=== PATIENT | female | born 1965 | race African-American/Black ===

== ENCOUNTER 2020-08-12 21:45 | Inpatient (IN) | payer MEDICARE ==
[~2020-08-12] VITALS: Ht 177.8 cm; Wt 79.4 kg
[2020-08-12 22:15] VITALS: BP 129/70
[2020-08-12] MEDS ORDERED: TEMAZEPAM 7.5 MG CAPSULE PO PRN (22:30)
[2020-08-12] MEDS ORDERED: MAGNESIUM HYDROXIDE 30 ML UDC PO PRN (22:30)
[2020-08-12] MEDS ORDERED: BLOOD SUGAR DIAGNOSTIC 1 EACH STRIP IN ONE (22:30)
[2020-08-12] MEDS ORDERED: MAG HYDROX/AL HYDROX/SIMETH 30 ML UDC PO PRN (22:30)
[2020-08-12] MEDS: LORAZEPAM 0.5 MG TABLET PO PRN (23:04)
--- NOTE | 2020-08-12 23:05 | NUR ---
RN NOTES : ANXIETY PT. C/O FEELING ANXIOUS PARANOID, HYPERVERVAL, PACING IN HALLWAY ATIVAN 0.5 MG PO PRN GIVEN PER PT. REQUEST , WILL CONTINUE TO MONITOR.
--- NOTE | 2020-08-12 23:15 | NUR ---
ADMISSION NOTES: ADMITTED THIS 55Y/O FEMALE PATIENT DIRECT ADMIT FROM [facility], ADMITTED TO GPS CONSERVED PATIENT ,UPON FACE TO FACE ASSESSMENT PATIENT IS A&O X 2,3 DELUSIONAL, ANXIOUS ,PARANOID , HYPERVERBAL TALKING TO SELF DISORGNIZED ,DISHELVED ,EASILY GETS AGITATED, PACING IN HALLWAY ,DENIES SI /HI AT THIS TIME, PT. IS POOR HISTORIAN, POOR INSIGHT ,POOR JUDGEMENT , PT. REFUSED TO SIGNS ADMISSION CONSENT PAPERS , DUE TO MENTAL STATUS / DELUSIONAL, PT. REFUSED INTIALLY BLOOD SUGAR CHECK ,PER PT. I AM NOT DIABETIC,BOTH MD AWARE AND NOTIFIED OF THE ADMISSION, BELONGINGS CONTRABAND WERE DONE ,PT. RIGHTS DISCUSS BY ANIMAL NURSE , PROVIDE THE PT. WITH HANDBOOK, AND MEDICATIONS GUIDE, ENVIRONMENTAL SAFETY CHECK DONE, ENCOURAGED PT. VERBALIZED ANY FEELING CONCERN TO STAFF, ORIENT TO UNIT POLICY, NO ACUTE DISTRESS NOTED,VITAL SIGNS WNL ,DENIES ANY PAIN AT THIS TIME,WILL CONTINUE TO MONITOR FOR Q15 SAFETY AND BEHAVIOR.
[2020-08-13] MEDS ORDERED: OLAN15TA3 PO (01:24)
[2020-08-13] MEDS ORDERED: BENZ2TAB7 PO (01:24)
[2020-08-13] MEDS ORDERED: DIVA500T2 PO ×2 (01:24)
--- NOTE | 2020-08-13 06:16 | NUR ---
RN NOTES: PT. REFUSED SKIN ASSESSMENT AND PHOTS TAKEN , ENCOURAGE X 3 STILL STRONGLY REFUSED , PER PT. MY SKIN IS FINE ONLY DRYNESS SKIN,WILL CONTINUITY WITH CARE.
--- NOTE | 2020-08-13 06:19 | NUR ---
RN NOTES: PLACED CALLED AND LEFT MESSAGE TO RAFAT RASCON REGARDING AUTHORIZATION TO DETAIN AND TREAT CONSERVATEE , PHONE [phone].
--- NOTE | 2020-08-13 06:40 | NUR ---
RN NOTES: PATIENT RESTING IN ROOM. NO S/S OF DISTRESS. NO BEHAVIOR PROBLEMS NOTED AND NO CHANGE OF CONDITION NOTED, SAFETY PRECAUTION MAINTAINED, ALL PATIENT CARE NEEDS MET AT THIS TIME. WILL CONTINUE TO MONITOR PATIENT FOR MOOD, BEHAVIOR AND SAFETY AND ENDORSE TO AM SHIFT FOR CONTINUITY CARE.
[2020-08-13 08:00] VITALS: BP 127/72
--- NOTE | 2020-08-13 08:30 | NUR ---
RN NOTE- PHONED [facility] CONSERVATOR REGARDING FAX NUMBER AND LEFT MESSAGE ABOUT CURRENT DETAIN & TREAT FORM.
--- NOTE | 2020-08-13 09:00 | NUR ---
RN NOTE- PT DELUSIONAL THINKS EATING WILL CAUSE OTHERS TO SO SHES BARELY EATING FOOD. DRINKING FLUIDS HOWEVER. VISIBLE ON UNIT SELECTIVELY INTERACTIVE NO BEHAVIORAL ISSUES
--- NOTE | 2020-08-13 11:30 | NUR ---
RN NOTE- CALLED [facility] CONSERVATOR AGAIN. LEFT MESSAGE ABOUT DETAIN & TREAT FORM. NO REPLY SPOKE W DR TAMEZ TODAY AND SHOWED HER. WILL CONTINUE TO TREAT HER W EXISTING DOCUMENTATION FOR NOW.
[2020-08-13] MEDS: LITHIUM CARBONATE 150 MG CAPSULE PO SCH ×2 (11:50→21:29)
[2020-08-13] MEDS: risperiDONE 1 MG TABLET PO SCH ×2 (12:52→16:38)
[2020-08-13 16:00] VITALS: BP 114/68
[2020-08-13 16:42] LABS: BASOPHILS % (AUTO) 0.6 % (0.0-2.0); EOSINOPHILS % (AUTO) 2.7 % (0.0-6.0); HEMATOCRIT 40 % (33-45); HEMOGLOBIN 12.7 g/dL (11.5-14.8); LYMPHOCYTES # (AUTO) 1.2 /CMM (0.8-4.8); LYMPHOCYTES % (AUTO) 18.7 % (20.0-44.0); MEAN CORPUSCULAR HGB CONC 32 g/dl (31.0-36.0); MEAN CORPUSCULAR VOLUME 98 fL (82-100); MONOCYTES # (AUTO) 0.8 /CMM (0.1-1.30); NEUTROPHILS # (AUTO) 4.1 /CMM (1.8-8.9); PLATELET COUNT (AUTO) 239 /CMM (150-450); RED BLOOD CELL COUNT(AUTO) 4.03 MIL/uL (4.0-5.2); WHITE BLOOD COUNT (AUTO) 6.3 K/uL (4.3-11.0)
[2020-08-13 17:15] LABS: CREATININE 0.8 mg/dL (0.6-1.3); POTASSIUM 3.6 mmol/L (3.5-5.1)
--- NOTE | 2020-08-13 19:30 | NUR ---
GPS RN NOTE, RECEIVED PATIENT AWAKE AND IN ROOM, NO S/S OR COMPLAINTS OF PAIN AT THIS TIME. PATIENT IS DISPLAYING NO S/S OF APPARENT DISTRESS AT THIS TIME. PATIENT BREATHING IS UNLABORED WITH EQUAL RISE AND FALL OF THE CHEST. PATIENT IS ALERT AND ORIENTED X 3 ON ROOM AIR WITH A SPO2 99%. PATIENT IS COMPLIANT WITH MEDICATIONS, HYPERVERBAL AT TIMES, ANXIOUS, DEMANDING, PARANOID, FOCUSED ON DISCHARGE, NEEDS LOTS OF REDIRECTION, AND COOPERATIVE. PATIENT DENIES SUICIDAL AND HOMICIDAL IDEATIONS AT THIS TIME. PATIENT ASSISTED WITH TURNING AND REPOSITIONING Q2HR AND PRN FOR COMFORT AND CIRCULATION. PATIENT HAS NO NEEDS AT THIS TIME. PATIENT EDUCATED ON THE USE OF THE CALL FERNANDEZ. WILL CONTINUE TO MONITOR THIS PATIENT Q15 MINUTES WITH THE HELP OF STAFF TO MAINTAIN SAFETY.
[2020-08-13 20:48] VITALS: BP 118/76
[2020-08-14 08:00] VITALS: BP 102/69
[2020-08-14] MEDS: LITHIUM CARBONATE 150 MG CAPSULE PO SCH ×2 (08:36→20:17)
[2020-08-14] MEDS: risperiDONE 1 MG TABLET PO SCH ×3 (08:36→16:11)
[2020-08-14] MEDS ORDERED: LITHIUM CARBONATE 150 MG CAPSULE PO ONE (12:30)
[2020-08-14 16:00] VITALS: BP 125/72
[2020-08-14 20:00] VITALS: BP 107/61
[2020-08-14] MEDS: ACETAMINOPHEN 325 MG TABLET PO PRN (21:36)
--- NOTE | 2020-08-14 21:36 | NUR ---
RN notes Pt is complaining of R and L knee pain and requesting tylenol. Administered tylenol 325 mg/2tabs/po/prn as ordered for pain per pt request. Will continue to monitor.
[2020-08-15 08:00] VITALS: BP 101/66
[2020-08-15] MEDS: risperiDONE 1 MG TABLET PO SCH ×2 (08:54→16:51)
[2020-08-15] MEDS: LITHIUM CARBONATE 150 MG CAPSULE PO SCH ×2 (08:55→20:53)
--- NOTE | 2020-08-15 09:00 | NUR ---
RN NOTE- PT ALERT INTERACTIVE DENIES ALL PO INTAKE GOOD MED COMPLIANT
--- NOTE | 2020-08-15 11:12 | NUR ---
Conservator Contact: SW called the pts Temporary Conservator, Leora ([phone]), and left a message that the SW would like to speak to her regarding the pts discharge plan.
--- NOTE | 2020-08-15 12:48 | NUR ---
Initial Discharge Plan: Pt is currently homeless and states that she would like nursing facility placement. SW will work with the pt, pts conservator, and pts MD regarding appropriate discharge planning. SW will form a safe and proper discharge.
[2020-08-15] MEDS: BENZTROPINE MESYLATE (1 MG) 1 MG TABLET PO SCH ×2 (13:11→16:51)
[2020-08-15 16:00] VITALS: BP 100/62
[2020-08-15] MEDS: LORAZEPAM 0.5 MG TABLET PO PRN (19:27)
[2020-08-15 20:00] VITALS: BP 114/71
--- NOTE | 2020-08-16 01:00 | NUR ---
RN NOTES: OFFERED SLEEPING PILLS ,BUT PT. REFUSED TO TAKE IT , PER PT. I DONT NEED ANY SLEEPING PILLS.
--- NOTE | 2020-08-16 06:23 | NUR ---
RN NOTES: PATIENT RESTING IN ROOM. NO S/S OF DISTRESS. NO CHANGE OF CONDITION NOTED, SAFETY PRECAUTION MAINTAINED, ALL PATIENT CARE NEEDS MET AT THIS TIME. WILL CONTINUE TO MONITOR PATIENT FOR MOOD, BEHAVIOR AND SAFETY AND ENDORSE TO AM SHIFT FOR CONTINUITY CARE.
[2020-08-16 08:00] VITALS: BP 115/69
[2020-08-16] MEDS: LITHIUM CARBONATE 150 MG CAPSULE PO SCH ×2 (08:54→21:12)
[2020-08-16] MEDS: risperiDONE 1 MG TABLET PO SCH ×2 (08:54→17:04)
[2020-08-16] MEDS: BENZTROPINE MESYLATE (1 MG) 1 MG TABLET PO SCH ×3 (08:54→17:04)
--- NOTE | 2020-08-16 09:00 | NUR ---
RN NOTE- LIMITED SLEEP HOURS LAST NOC. PT SLEEPING THIS MORNING PT ALERT INTERACTIVE DENIES ALL PO INTAKE GOOD MED COMPLIANT DENIES ALL
--- NOTE | 2020-08-16 11:15 | NUR ---
Individual Intervention: SW met with the pt at bedside and discussed SNF placement. SW stated that she has not been able to make contact with the pts conservator and expressed that the conservator gets to make decisions around her discharge. With that acknowledgement, SW explained a SNF and what it entails. SW stated that she would send out a referral for the time being.
[2020-08-16 16:00] VITALS: BP 126/68
[2020-08-16] MEDS: LORAZEPAM 0.5 MG TABLET PO PRN (20:02)
--- NOTE | 2020-08-16 20:03 | NUR ---
RN NOTES: ANXIETY PT. C/O FEELING ANXIOUS PARANOID, HYPERVERVAL, PACING IN HALLWAY ATIVAN 0.5 MG PO PRN GIVEN PER PT. REQUEST , WILL CONTINUE TO MONITOR.
[2020-08-16 20:16] VITALS: BP 125/69
[2020-08-16] MEDS: diphenhydrAMINE HCL 25 MG CAPSULE PO PRN ×2 (22:55→23:09)
--- NOTE | 2020-08-16 23:13 | NUR ---
RN NOTES: PT.WAS REQUESTING FOR BENADRYL 25 MG PO, PULL OUT FROM THE OMNICELL , AND PT. REFUSED TO TAKE IT , BENADRYL 25 MG PO RETUNED TO THE OMNICELL , CHARGE VANESSA GRIMM MADE AWRE, WILL CONTINUITY WITH CARE.
[2020-08-17 07:07] LABS: BASOPHILS % (AUTO) 0.8 % (0.0-2.0); EOSINOPHILS % (AUTO) 6.5 % (0.0-6.0); HEMATOCRIT 34 % (33-45); HEMOGLOBIN 11.2 g/dL (11.5-14.8); LYMPHOCYTES # (AUTO) 1.5 /CMM (0.8-4.8); LYMPHOCYTES % (AUTO) 29.1 % (20.0-44.0); MEAN CORPUSCULAR HGB CONC 34 g/dl (31.0-36.0); MEAN CORPUSCULAR VOLUME 98 fL (82-100); MONOCYTES # (AUTO) 0.7 /CMM (0.1-1.30); MONOCYTES % (AUTO) 14.1 % (2.0-12.0); NEUTROPHILS # (AUTO) 2.6 /CMM (1.8-8.9); NEUTROPHILS % (AUTO) 49.5 % (43.0-81.0); PLATELET COUNT (AUTO) 236 /CMM (150-450); RED BLOOD CELL COUNT(AUTO) 3.43 MIL/uL (4.0-5.2); WHITE BLOOD COUNT (AUTO) 5.2 K/uL (4.3-11.0)
[2020-08-17 07:33] LABS: ALBUMIN 2.9 g/dL (3.4-5.0); BILIRUBIN,TOTAL 0.5 mg/dL (0.2-1.0); CALCIUM, SERUM 8.7 mg/dL (8.5-10.1); CREATININE 0.8 mg/dL (0.6-1.3); POTASSIUM 4.2 mmol/L (3.5-5.1); TOTAL PROTEIN, SERUM 6.3 g/dL (6.4-8.2)
--- NOTE | 2020-08-17 08:00 | NUR ---
VERY AGITATED THIS AM ABOUT LAB DRAW.
[2020-08-17] MEDS: ACETAMINOPHEN 325 MG TABLET PO PRN ×2 (08:02→18:25)
--- NOTE | 2020-08-17 08:06 | NUR ---
GIVEN TYLENOL 650 MG PO FOR JANELLE. KNEE PAIN.
[2020-08-17] MEDS: BENZTROPINE MESYLATE (1 MG) 1 MG TABLET PO SCH ×3 (09:00→17:00)
[2020-08-17] MEDS: risperiDONE 1 MG TABLET PO SCH ×2 (09:00→09:45)
--- NOTE | 2020-08-17 10:11 | NUR ---
SNF Referral: CHRIS faxed a referral to [facility] with attn to CESAR and Hong to the fax number: [phone].
--- NOTE | 2020-08-17 10:14 | NUR ---
refused am meds
--- NOTE | 2020-08-17 10:29 | NUR ---
Conservator Contact: SW called the pts Temporary Conservator, Shalondahalley ([phone]), and informed her of the discharge plan to discharge the pt to SNF. Conservator questioned this plan and asked what the medical necessity and SW went through the notes and informed her that the pt is having difficulty ambulating and needs physical therapy. Conservator stated that she will review the case and inform the SW if the SNF will be approved but for the time being she wants the SW to call the Intensive Care Division ([phone]) and ask about enriched residential facility for the pt. She also stated that the pt has a LPS conservatorship court date for Saturday08/22/20.
[2020-08-17] MEDS: LITHIUM CARBONATE 150 MG CAPSULE PO SCH ×2 (10:37→20:45)
--- NOTE | 2020-08-17 11:00 | NUR ---
DR. TAMEZ AWARE PT,REFUSED SEVERAL PSYCH MEDS THIS AM.
[2020-08-17] MEDS: IBUPROFEN 600 MG TABLET PO PRN (12:24)
--- NOTE | 2020-08-17 12:28 | NUR ---
GIVEN MOTRIN FOR JANELLE. KNEE PAIN.
[2020-08-17 16:00] VITALS: BP 108/54
[2020-08-17] MEDS: LORAZEPAM 0.5 MG TABLET PO PRN (18:26)
--- NOTE | 2020-08-17 18:42 | NUR ---
PT. VERBALIZED THAT SHE HAS SUICIDAL IDEATIONS,RAILWAY TRACTION LINE WORKER INFORMED.GIVEN TYLENOL 650 MG PO AND ATIVAN.MONITORING PT. CLOSELY.
--- NOTE | 2020-08-17 20:45 | NUR ---
gps/therapeutic radiologist notes: pt. refused hs meds. offered 3x. explained risk and benefits. pt. still refused.
--- NOTE | 2020-08-18 09:00 | NUR ---
RN OPEN NOTES PATIENT WALKING IN ROOM AND HALLS. NO DISTRESS OR AGITATION NOTED. QUIET AT THIS TIME. PARANOID AT TIMES. NO C/O PAIN OR DISCOMFORT. SAFETY ENVIRONMENT OBSERVED AT ALL TIMES. WILL CONTINUE TO MONITOR Q15 MIN FOR SAFETY AND BEHAVIOR.
[2020-08-18] MEDS: LITHIUM CARBONATE 150 MG CAPSULE PO SCH ×2 (09:10→21:04)
[2020-08-18] MEDS: BENZTROPINE MESYLATE (1 MG) 1 MG TABLET PO SCH ×2 (09:10→16:48)
[2020-08-18] MEDS: IBUPROFEN 600 MG TABLET PO PRN ×2 (09:45→23:05)
--- NOTE | 2020-08-18 11:01 | NUR ---
RN-CO: ANGELITA HANEY DIRECTOR TO CALL MARTINA RAGLAND TO ASSESS THE PT FOR HOLD SINCE PT DOESN'T HAVE AUTHORIZATION TO DETAIN AND TREAT. LEFT MESSAGE.
--- NOTE | 2020-08-18 13:01 | NUR ---
RN-CO: AWAITING FOR MARTINA Torres CLINICIAN.
--- NOTE | 2020-08-18 13:28 | NUR ---
RN-CO: MARTINA RAGLAND RN IS HERE TO WRITE HOLD.
--- NOTE | 2020-08-18 14:58 | NUR ---
Intensive Care Division Contact: SW called the Intensive Care Division ([phone]), and left a message stating that the SW would like to refer one of her patients to an Enriched Residential Facility and would like information on how to do so.
--- NOTE | 2020-08-18 15:01 | NUR ---
Conservator Contact: SW called the pts Temporary Conservator, Leora ([phone]), and left a voicemail that informed her that the SW would like to follow up on discussing pts discharge plan. SW also informed her that she is aware the pt has a court date for Saturday and informed her that hospital would not be able to provide transportation and a 1:1 for the pt. CHRIS stated that she was wondering if the court meeting was going to occur through zoom or not considering covid.
--- NOTE | 2020-08-18 16:16 | NUR ---
RN-CO: Per Chiquis Tavares RN , patient don't need a hold. She communicated with Shreya.
--- NOTE | 2020-08-18 16:20 | NUR ---
Conservator Contact: CHRIS received a call from Martina ([phone]; fax: [phone]) who stated that the pts court hearing for LPS Conservatorship will take place on Saturday via zoom. She stated that she would send the SW the invite through email. She stated that the meeting will take place at 9:30am and to have the pt log on at 9:20am.
[2020-08-18] MEDS: LORAZEPAM 0.5 MG TABLET PO PRN (19:44)
--- NOTE | 2020-08-18 19:45 | NUR ---
RN NOTES: ANXIETY PT. C/O FEELING ANXIOUS PARANOID, HYPERVERVAL, PACING IN HALLWAY ATIVAN 0.5 MG PO PRN GIVEN PER PT. REQUEST , WILL CONTINUE TO MONITOR.
[2020-08-19 08:00] VITALS: BP 120/63
[2020-08-19] MEDS: BENZTROPINE MESYLATE (1 MG) 1 MG TABLET PO SCH ×2 (08:35→16:48)
[2020-08-19] MEDS: LITHIUM CARBONATE 150 MG CAPSULE PO SCH ×2 (08:35→20:41)
[2020-08-19] MEDS: ENSURE ENLIVE CHOC 237 ML CAN PO SCH (17:23)
--- NOTE | 2020-08-20 06:42 | NUR ---
RN NOTES PT IN BED, SLEEPING, EASILY AROUSABLE BY VERBAL TACTILE. NO CHANGES IN CONDITION NOTED. NO RESP DISTRESS NOTED. ON FREQUENT VISUAL CHECK FOR BEHAVIOR AND SAFETY. ABLE TO COMMUNICATE NEEDS, ALL NEEDS ATTENDED. ALL SAFETY PRECAUTIONS MAINTAINED. WILL ENDORSE TO NEXT SHIFT NURSE FOR DESMOND.
[2020-08-20] MEDS: ENSURE ENLIVE CHOC 237 ML CAN PO SCH ×3 (08:00→17:16)
[2020-08-20] MEDS: LITHIUM CARBONATE 150 MG CAPSULE PO SCH ×4 (09:00→20:55)
[2020-08-20] MEDS: BENZTROPINE MESYLATE (1 MG) 1 MG TABLET PO SCH ×2 (09:33→17:20)
--- NOTE | 2020-08-20 10:50 | NUR ---
REFUSED AM LITHIUM.
[2020-08-20 16:00] VITALS: BP 108/60
[2020-08-20 20:36] VITALS: BP 95/59
--- NOTE | 2020-08-20 20:55 | NUR ---
GPS-RN NOTES: MEDICATION REFUSAL PATIENT REFUSED LITHIUM DOSE FOR TONIGHT. EDUCATED PATIENT REGARDING MEDICATION COMPLIANCE, BUT PATIENT CONTINUED TO REFUSE. OFFERED X3, PT STATED, "I DON'T WANT IT". WILL CONTINUE TO MONITOR.
[2020-08-21] MEDS: ENSURE ENLIVE CHOC 237 ML CAN PO SCH ×3 (08:39→16:14)
[2020-08-21] MEDS: LITHIUM CARBONATE 150 MG CAPSULE PO SCH ×2 (09:24→20:27)
[2020-08-21] MEDS: BENZTROPINE MESYLATE (1 MG) 1 MG TABLET PO SCH ×2 (09:24→16:14)
--- NOTE | 2020-08-21 09:32 | NUR ---
RN-CO: RENETTA A FOLLOW UP TO CONSERVATOR USING THIS NUMBER [phone]. TO FAX THE AUTHORIZATION TO DETAIN AND TREAT.
[2020-08-21 19:48] VITALS: BP 104/59
[2020-08-22] MEDS: ACETAMINOPHEN 325 MG TABLET PO PRN (06:25)
[2020-08-22] MEDS: ENSURE ENLIVE CHOC 237 ML CAN PO SCH ×3 (08:04→16:31)
[2020-08-22] MEDS: BENZTROPINE MESYLATE (1 MG) 1 MG TABLET PO SCH ×2 (08:05→16:31)
[2020-08-22] MEDS: LITHIUM CARBONATE 150 MG CAPSULE PO SCH ×2 (08:05→21:00)
--- NOTE | 2020-08-22 09:00 | NUR ---
RN NOTE- PT ALERT ORIENTED PERSON PLACE TIME PURPOSE DENIES SI HI AH VH MED COMPLIANT FLAT AFFECT INTERACTIVE ANXIOUS ABOUT CONSERV HEARING
[2020-08-22] MEDS ORDERED: risperiDONE 1 MG TABLET PO PRN (17:30)
--- NOTE | 2020-08-22 21:27 | NUR ---
GPS RN NOTES: PATIENT REFUSED 2100 LITHIUM 150MG 3CAPS/450MG PO ORDERED. PATIENT INITIALLY STATED SHE IS REFUSING BECAUSE HER DINNER HAD SUGAR AND WILL INTERFERE WITH THE LITHIUM BUT LATER CHANGED HER REASON AND STATED "I NEED A MEDICATION THAT CAN TAKE AWAY MY SHYNESS BECAUSE THAT IS WHAT CAN STOP MY DEPRESSION AND BIPOLAR".
--- NOTE | 2020-08-22 22:55 | NUR ---
GPS RN NOTES: PATIENT REFUSED PM LABS CBC, CMP AND LITHIUM.
[2020-08-23] MEDS: diphenhydrAMINE HCL 25 MG CAPSULE PO PRN (01:33)
--- NOTE | 2020-08-23 06:35 | NUR ---
GPS RN CLOSING NOTES: PATIENT AWAKE A/O X3. PATIENT SLEPT 4 HR THIS SHIFT. NO BEHAVIORAL ISSUES THIS SHIFT. NO C/O PAIN. NO S/S OF DISTRESS. RESPIRATION EVEN AND UNLABORED WITH EQUAL RISE AND FALL OF THE CHEST ON ROOM AIR. SAFETY PRECAUTION MAINTAINED, BED IN LOWEST POSITION AND LOCKED. Q15 MINUTES SAFETY ROUND CONTINUED. ALL PATIENT CARE NEEDS HAVE BEEN MET AT THIS TIME. WILL CONTINUE TO MONITOR PATIENT FOR MOOD, BEHAVIOR AND SAFETY AND ENDORSE TO AM SHIFT.
[2020-08-23] MEDS: LITHIUM CARBONATE 150 MG CAPSULE PO SCH ×2 (08:05→20:07)
[2020-08-23] MEDS: ENSURE ENLIVE CHOC 237 ML CAN PO SCH (08:05)
[2020-08-23] MEDS: BENZTROPINE MESYLATE (1 MG) 1 MG TABLET PO SCH ×2 (08:05→16:08)
--- NOTE | 2020-08-23 09:00 | NUR ---
RN NOTE- PT ALERT ORIENTED INTERACTIVE DENIES SI HI AH VH PT REFUSING LITHIUM BUT MED COMPLIANT W OTHER RX.
--- NOTE | 2020-08-23 12:32 | NUR ---
Conservator Contact: SW called the pts Temporary Conservator, Leora ([phone]), and left a voicemail stating that the SW would like to discuss the pts discharge plan and that the pt has been refusing medications and the MD would like to provide IMs for the pt.
[2020-08-23 15:54] LABS: BASOPHILS # (AUTO) 0.1 /CMM (0.0-0.2); BASOPHILS % (AUTO) 1.2 % (0.0-2.0); HEMATOCRIT 34 % (33-45); HEMOGLOBIN 11.2 g/dL (11.5-14.8); LYMPHOCYTES # (AUTO) 1.4 /CMM (0.8-4.8); LYMPHOCYTES % (AUTO) 27.6 % (20.0-44.0); MEAN CORPUSCULAR HGB CONC 33 g/dl (31.0-36.0); MEAN CORPUSCULAR VOLUME 99 fL (82-100); MONOCYTES # (AUTO) 0.7 /CMM (0.1-1.30); MONOCYTES % (AUTO) 12.9 % (2.0-12.0); NEUTROPHILS # (AUTO) 2.7 /CMM (1.8-8.9); NEUTROPHILS % (AUTO) 52.3 % (43.0-81.0); PLATELET COUNT (AUTO) 275 /CMM (150-450); RED BLOOD CELL COUNT(AUTO) 3.43 MIL/uL (4.0-5.2); WHITE BLOOD COUNT (AUTO) 5.2 K/uL (4.3-11.0)
[2020-08-23 16:00] VITALS: BP 113/63
[2020-08-23 16:07] LABS: ALBUMIN 3.3 g/dL (3.4-5.0); BILIRUBIN,TOTAL 0.2 mg/dL (0.2-1.0); CALCIUM, SERUM 8.7 mg/dL (8.5-10.1); CREATININE 0.8 mg/dL (0.6-1.3); MAGNESIUM 2.1 mg/dL (1.8-2.4); POTASSIUM 4.3 mmol/L (3.5-5.1)
[2020-08-23] MEDS: ACETAMINOPHEN 325 MG TABLET PO PRN (17:36)
--- NOTE | 2020-08-23 17:36 | NUR ---
RN NOTE- C/O KNEE PAIN. TYLENOL 650 MG GIVEN
--- NOTE | 2020-08-23 20:00 | NUR ---
RN notes Pt refused VS at 1999. Explained risks and benefits. Pt keep refusing. Charge nurse is aware and informed. Will continue to monitor.
[2020-08-24] MEDS: LITHIUM CARBONATE 150 MG CAPSULE PO SCH ×2 (09:38→21:08)
[2020-08-24] MEDS: BENZTROPINE MESYLATE (1 MG) 1 MG TABLET PO SCH ×3 (09:38→16:54)
--- NOTE | 2020-08-24 10:27 | NUR ---
Conservator Contact: SW called the pts Temporary Conservator, Leora ([phone]), and left a voicemail stating that the SW would like to discuss the pts discharge plan and that the pt has been refusing medications and the MD would like to provide IMs for the pt.
[2020-08-24] MEDS: risperiDONE-M 0.5 MG TAB.RAPDIS PO SCH ×2 (11:25→16:53)
--- NOTE | 2020-08-24 12:49 | NUR ---
IMD Contact: SW called [facility] and spoke to the Intake department who stated that they are contracted with [facility] and that the pts conservator should start this referral process.
--- NOTE | 2020-08-24 12:52 | NUR ---
Conservator Contact: SW emailed the pts Temporary Conservator, Leora ([phone]), and then she called the SW and stated that she was going to send over the paperwork as soon as possible and stated that the MD can start to medicate with injections if the pt refuses. She also stated that she believes the pt is going to need an IMD and stated that she inform the SW who to call to set that up via [facility].
--- NOTE | 2020-08-24 15:04 | NUR ---
Intensive Care Division Contact: CHRIS contacted the Intensive Care Division and spoke to the Officer of the Day. CHRIS provided the Officer of the Day with all of the information requested verbally and she submitted a referral for IMD for the SW. CHRIS was informed that she will be contacted when the referral has been reviewed and when more information will be requested. Addendum: 08/26/20 at 1206 by CHRIS DICKERSON CHRIS faxed an extensive record of notes to the fax number: [phone].
[2020-08-25] MEDS: LITHIUM CARBONATE 150 MG CAPSULE PO SCH ×2 (08:40→21:42)
[2020-08-25] MEDS: BENZTROPINE MESYLATE (1 MG) 1 MG TABLET PO SCH ×3 (08:40→16:07)
[2020-08-25] MEDS: risperiDONE-M 0.5 MG TAB.RAPDIS PO SCH ×2 (08:42→16:08)
--- NOTE | 2020-08-25 16:41 | NUR ---
Intensive Care Division Contact: SW contacted the Intensive Care Division and spoke to Dasha who stated that the referral has been made but the pt has to remain in the hospital for the referral to be in place.
--- NOTE | 2020-08-25 17:59 | NUR ---
Covid swab collected and transported to lab.
--- NOTE | 2020-08-25 18:01 | NUR ---
CXR ordered patient refused x 2 attempts. States "i will do tomorrow, too much stress." Unable to get patient to comply. Will endorse to oncoming nurse.
--- NOTE | 2020-08-25 20:00 | NUR ---
NURSES NOTES: PATIENT IN THE ROOM, APPEARS PLEASANT AND CALM. REMINDED PATIENT REGARDING HER CHEST XRAY ORDER THAT NEEDS TO BE DONE. PER PATIENT SHE DOESN'T NEED IT SINCE SHE WAS BORN IN [place] THAT'S WHY SHE IS DIAGNOSED WITH SOMETHING. PATIENT NOT ABLE TO ELABORATE THE THOUGHT. NURSE EXPLAINED THE NEED FOR THE XRAY BUT PATIENT REFUSED TO HAVE IT DONE.
--- NOTE | 2020-08-25 23:00 | NUR ---
NURSES NOTES: PATIENT IN THE ROOM, SCANNING THROUGH THE PAGES OF HER MAGAZINES AND BOOKS . SHE SCREAMED ALL OF A SUDDEN. WHEN ASKED WHY, PATIENT STATED THAT SHE LOST HER DATEBOOK THAT CONTAINS ALL OF THE CONTACT NUMBERS OF IMPORTANT PEOPLE SHE CAN CALL. TITLE I COORDINATOR HELPED THE PATIENT LOOK FOR THIS DATEBOOK. PATIENT IS VERY PARANOID THINKING SOMEBODY IS STEALING HER STUFF. GROUP SUPERVISOR YARD EXPLAINED TO HER THAT WE WILL HELP LOOK FOR IT, BUT PATIENT INSISTS THAT THE CAMERAS BE REVIEWED. JAG -SECURITY STAFF WAS CALLED TO THE UNIT. HE EXPLAINED TO PATIENT REGARDING PROTOCOLS ON CAMERA REVIEWS. PATIENT WAS NOT REALLY HAPPY ABOUT IT. PATIENT WENT BACK INTO HER ROOM. AFTER AN HOUR PATIENT CAME TO TITLE I COORDINATOR AND STATED THAT SHE FOUND THE DATEBOOK. PATIENT HAVE IT IN THE LOCKER FOR SAFEKEEPING- WITNESSED BY TITLE I COORDINATOR, GROUP SUPERVISOR YARD-JOE AND THE PATIENT WELL.
[2020-08-26] MEDS: LITHIUM CARBONATE 150 MG CAPSULE PO SCH ×2 (08:26→20:48)
[2020-08-26] MEDS: BENZTROPINE MESYLATE (1 MG) 1 MG TABLET PO SCH ×3 (08:26→16:10)
--- NOTE | 2020-08-26 10:01 | NUR ---
Patient refusing chest x-ray nurse Maddi is aware.
[2020-08-27] MEDS: LITHIUM CARBONATE 150 MG CAPSULE PO SCH ×2 (08:58→21:44)
[2020-08-27] MEDS: BENZTROPINE MESYLATE (1 MG) 1 MG TABLET PO SCH ×3 (08:58→17:15)
[2020-08-27] MEDS: LORAZEPAM 0.5 MG TABLET PO PRN (09:41)
--- NOTE | 2020-08-27 09:46 | NUR ---
getting agitated with another pt. attempted to give her ativan and refusing.
--- NOTE | 2020-08-27 11:58 | NUR ---
requesting pt. agree to chest x-ray,but refusing at this time.
--- NOTE | 2020-08-28 06:50 | NUR ---
GPS RN CLOSING NOTES: PATIENT AWAKE, ALERT AND ORIENTED X3. SLEPT 4HR THIS SHIFT. UNCOOPERATIVE, REFUSED CHEST XR AT 0630. NO S/S OF DISTRESS. RESPIRATION EVEN AND UNLABORED WITH EQUAL RISE AND FALL OF THE CHEST ON ROOM AIR. SAFETY PRECAUTION MAINTAINED, Q15 MINUTES SAFETY ROUND CONTINUED. ALL PATIENT CARE NEEDS HAVE BEEN MET AT THIS TIME. WILL CONTINUE TO MONITOR PATIENT FOR MOOD, BEHAVIOR AND SAFETY AND ENDORSE TO AM SHIFT.
--- NOTE | 2020-08-28 09:00 | NUR ---
RN NOTE- PT ALERT ORIENTED FLAT AFFECT FOCUSED ON PT IN 215, PO INTAKE GOOD, MED COMPLIANT DENIES ALL
[2020-08-28] MEDS: LITHIUM CARBONATE 150 MG CAPSULE PO SCH ×2 (09:02→20:46)
[2020-08-28] MEDS: BENZTROPINE MESYLATE (1 MG) 1 MG TABLET PO SCH ×3 (09:02→17:05)
[2020-08-28 16:00] VITALS: BP 108/63
--- NOTE | 2020-08-29 06:22 | NUR ---
GPS RN CLOSING NOTES: PATIENT AWAKE, ALERT AND ORIENTED X3. PATIENT SLEPT 7HR THIS SHIFT. REFUSED WEEKLY SKIN ASSESSMENT. NO S/S OF DISTRESS. RESPIRATION EVEN AND UNLABORED WITH EQUAL RISE AND FALL OF THE CHEST ON ROOM AIR. SAFETY PRECAUTION MAINTAINED, Q15 MINUTES SAFETY ROUND CONTINUED. ALL PATIENT CARE NEEDS HAVE BEEN MET AT THIS TIME. WILL CONTINUE TO MONITOR PATIENT FOR MOOD, BEHAVIOR AND SAFETY AND ENDORSE TO AM SHIFT.
[2020-08-29 08:00] VITALS: BP 92/60
[2020-08-29] MEDS: LITHIUM CARBONATE 150 MG CAPSULE PO SCH ×2 (08:33→21:42)
[2020-08-29] MEDS: BENZTROPINE MESYLATE (1 MG) 1 MG TABLET PO SCH ×3 (08:33→16:02)
--- NOTE | 2020-08-29 09:35 | NUR ---
Patient is still Refusing for chest X-Ray RN is aware.
[2020-08-30] MEDS: BENZTROPINE MESYLATE (1 MG) 1 MG TABLET PO SCH ×3 (09:00→16:30)
[2020-08-30] MEDS: LITHIUM CARBONATE 150 MG CAPSULE PO SCH ×2 (09:00→20:55)
--- NOTE | 2020-08-30 09:00 | NUR ---
RN NOTE- PATIENT IS ALERT ORIENTED X2-3. MED COMPLIANT AT THIS TIME. DENIES SI/HI.
[2020-08-30] MEDS: risperiDONE 1 MG TABLET PO SCH ×2 (12:35→20:56)
[2020-08-30] MEDS: ENSURE ENLIVE CHOC 237 ML CAN PO SCH (16:31)
[2020-08-30] MEDS: LORAZEPAM 0.5 MG TABLET PO PRN (21:52)
--- NOTE | 2020-08-30 21:54 | NUR ---
GPS RN NOTES: PATIENT AGITATED, RESTLESS, YELLING. REFUSING REDIRECTION. ATIVAN 0.5MG/1TAB GIVEN PO PRN ORDERED. WILL CONTINUE TO MONITOR.
--- NOTE | 2020-08-31 06:38 | NUR ---
GPS RN CLOSING NOTES: PATIENT AWAKE, ALERT AND ORIENTED X3. SLEPT 6HR THIS SHIFT. WITH ENCOURAGEMENT PATIENT FINALLY AGREED TO BLOOD DRAW TO CHECK LITHIUM LEVEL. NO S/S OF DISTRESS. RESPIRATION EVEN AND UNLABORED WITH EQUAL RISE AND FALL OF THE CHEST ON ROOM AIR. SAFETY PRECAUTION MAINTAINED, Q15 MINUTES SAFETY ROUNDS MAINTAINED. ALL PATIENT CARE NEEDS HAVE BEEN MET AT THIS TIME. WILL CONTINUE TO MONITOR PATIENT FOR MOOD, BEHAVIOR AND SAFETY AND ENDORSE TO AM SHIFT.
[2020-08-31 07:06] LABS: BASOPHILS % (AUTO) 0.9 % (0.0-2.0); EOSINOPHILS % (AUTO) 4.6 % (0.0-6.0); HEMATOCRIT 36 % (33-45); HEMOGLOBIN 12.2 g/dL (11.5-14.8); LYMPHOCYTES # (AUTO) 1.3 /CMM (0.8-4.8); LYMPHOCYTES % (AUTO) 29.5 % (20.0-44.0); MEAN CORPUSCULAR HGB CONC 34 g/dl (31.0-36.0); MEAN CORPUSCULAR VOLUME 98 fL (82-100); MONOCYTES # (AUTO) 0.6 /CMM (0.1-1.30); MONOCYTES % (AUTO) 13.4 % (2.0-12.0); NEUTROPHILS # (AUTO) 2.3 /CMM (1.8-8.9); NEUTROPHILS % (AUTO) 51.6 % (43.0-81.0); PLATELET COUNT (AUTO) 268 /CMM (150-450); RED BLOOD CELL COUNT(AUTO) 3.69 MIL/uL (4.0-5.2); WHITE BLOOD COUNT (AUTO) 4.4 K/uL (4.3-11.0)
[2020-08-31 07:31] LABS: ALBUMIN 3.3 g/dL (3.4-5.0); BILIRUBIN,TOTAL 0.6 mg/dL (0.2-1.0); CALCIUM, SERUM 9.3 mg/dL (8.5-10.1); CREATININE 0.8 mg/dL (0.6-1.3); POTASSIUM 4.5 mmol/L (3.5-5.1)
[2020-08-31] MEDS: risperiDONE 1 MG TABLET PO SCH ×2 (09:40→21:20)
[2020-08-31] MEDS: BENZTROPINE MESYLATE (1 MG) 1 MG TABLET PO SCH ×3 (09:40→17:39)
[2020-08-31] MEDS: LITHIUM CARBONATE 150 MG CAPSULE PO SCH ×2 (09:40→21:20)
[2020-08-31] MEDS: ENSURE ENLIVE CHOC 237 ML CAN PO SCH ×2 (09:43→17:00)
--- NOTE | 2020-08-31 10:00 | NUR ---
VERBALIZED DESTRUCTIVE THOUGHTS ABOUT FAMILY,STUDY ABROAD ADVISOR INFORMED.
--- NOTE | 2020-08-31 18:26 | NUR ---
calm throughout day,but still reluctant about discharge.
[2020-08-31] MEDS: LORAZEPAM 0.5 MG TABLET PO PRN (23:20)
--- NOTE | 2020-09-01 06:06 | NUR ---
PATIENT SLEPT FOR ABOUT 5 HOURS, OCCASIONALLY COMES OUT OF HER ROOM AND SITS IN CHAIR IN THE HALLWAY. SAFETY PRECAUTIONS MAINTAINED. WILL CONTINUE MONITORING CLOSELY.
[2020-09-01 08:00] VITALS: BP 121/69
[2020-09-01] MEDS: LITHIUM CARBONATE 150 MG CAPSULE PO SCH ×2 (08:12→20:17)
[2020-09-01] MEDS: ENSURE ENLIVE CHOC 237 ML CAN PO SCH ×2 (08:12→17:22)
[2020-09-01] MEDS: BENZTROPINE MESYLATE (1 MG) 1 MG TABLET PO SCH ×3 (08:12→16:10)
[2020-09-01] MEDS: risperiDONE 1 MG TABLET PO SCH ×2 (08:12→20:17)
--- NOTE | 2020-09-01 10:35 | NUR ---
Conservator Contact: Pts Temporary Conservator, Leora ([phone]), called the SW and stated that she approves for the pt to go to [facility]. SW stated that she will inform her when the pt is going to be discharged.
--- NOTE | 2020-09-01 10:52 | NUR ---
Discharge Note: Pt will be discharged to [facility] ([facility]) located at [address] [place] [address]; ([phone]). Pt will be transported via [facility] Trip# [phone] at 2PM. CHRIS attempted to inform the pts brother, Yash ([phone]), but his voicemail was full. Upon discharge, pt appears to be in a euphoric mood and presented with a calm affect. Pt denies both suicidal and homicidal ideation as well as auditory and visual hallucinations. Pt appears to be alert and oriented x4. Pt appears to be ambulatory with an unsteady gait. Pt appears to be disheveled yet appropriately dressed. Pt will continue to be under the care of psychiatrist, Dr. Joyce, located at [address] [facility], [address] [place] [address]; and night shift, Dr. Randolph, located at [address] [place] [address]; . Pt signed the Choice of Vendor form which was placed in the chart. The Choice of vendor form and the multidisciplinary exit care form was done, printed, signed, and given to the patient. Addendum: 09/01/20 at 1053 by CHRIS DICKERSON WRONG PT.
--- NOTE | 2020-09-01 10:54 | NUR ---
PT IS NOT BEING DISCHARGED. NOTE WAS FOR A DIFFERENT PATIENT.
--- NOTE | 2020-09-01 14:41 | NUR ---
SNF Contact: CHRIS faxed updated notes to [facility] with attn to CESAR and Hong to the fax number: [phone].
--- NOTE | 2020-09-01 14:42 | NUR ---
Individual Intervention: SW met with the pt at bedside and discussed SNF placement. SW informed her that she will be discharged tomorrow and the pt stated, "But what if my family dies?" SW stated that realistically speaking her placement will not determine if someone dies or not. SW stated that her conservator has agreed to this placement and if she has any concerns she may speak to her conservator.
--- NOTE | 2020-09-01 18:22 | NUR ---
RN NOTE PATIENT CALM/COOPERATIVE AND MED COMPLIANT. INTERACTIVE WITH PEERS. APPETITE GOOD. RAPID COVID COMPLETED AND SENT TO LAB.
--- NOTE | 2020-09-02 06:43 | NUR ---
GPS RN CLOSING NOTES: PATIENT LAYING ON BED AWAKE, ALERT AND ORIENTED X3. SLEPT 5HR THIS SHIFT. MED COMPLIANT. SCHEDULED TO DC TO SNF TODAY AT 2PM. NO S/S OF DISTRESS. RESPIRATION EVEN AND UNLABORED WITH EQUAL RISE AND FALL OF THE CHEST ON ROOM AIR. SAFETY PRECAUTION MAINTAINED, Q15 MINUTES SAFETY ROUNDS MAINTAINED. ALL PATIENT CARE NEEDS HAVE BEEN MET ANTICIPATED. WILL CONTINUE TO MONITOR PATIENT FOR MOOD, BEHAVIOR AND SAFETY AND ENDORSE TO AM SHIFT.
[2020-09-02] MEDS: risperiDONE 1 MG TABLET PO SCH ×2 (08:09→20:09)
[2020-09-02] MEDS: BENZTROPINE MESYLATE (1 MG) 1 MG TABLET PO SCH ×3 (08:09→17:07)
[2020-09-02] MEDS: LITHIUM CARBONATE 150 MG CAPSULE PO SCH ×2 (08:09→20:09)
[2020-09-02] MEDS: ENSURE ENLIVE CHOC 237 ML CAN PO SCH ×2 (08:09→17:07)
--- NOTE | 2020-09-02 09:11 | NUR ---
Dr. Joyce gave an order to D/C pt. to [facility] and to follow up with psych and medical doctors. Psychiatrist ordered to continue same meds including prn and added Invega Sustenna 234 mg IM starting on August and then Qmonthly.
--- NOTE | 2020-09-02 09:47 | NUR ---
V/S taken, discharge papers ready and belongings ready. Pt. without distress, denies suicidal and homicidal ideations. Addendum: 09/02/20 at 1057 by BASSAM CROCKETT RN Per criminal justice social worker Lesli, the conservator is aware of the discharge.
--- NOTE | 2020-09-02 11:09 | NUR ---
Discharge Note: Pt will be discharged to [facility] (SNF) located at [address] [place] [address]; ([phone]). Pt will be transported via [facility] at 3PM. CHRIS informed the pts conservator, Leora , about the pts discharge. Upon discharge, the pt appears to be in a euthymic mood and presented with a congruent affect. Pt appears to be alert and oriented x4 (time, place, self and situation). Pt denies both suicidal and homicidal ideation as well as auditory and visual hallucinations. Pt appears to be ambulatory with an unsteady gait. Pt appears to be well groomed and appropriately dressed. CHRIS provided patient with the 2019 [facility] Program list. SW provided patient with a copy of the [facility] homeless directory which provides information on locations for hot meals, sack lunches, food pantries, and showers. CHRIS provided an additional list of mental health clinics: [facility] [address] [place] [address] ([phone]); [facility] [address] [place] [address] ([phone]); a list of medical clinics; [facility] [address] [facility] [address], [place]. [place], ; [facility] [address] [facility]. CHRIS Provided [facility] [address] [place] [address]: ([phone]). Patient was provided with a brief substance abuse intervention and referred to the following substance abuse programs: [facility] Substance Abuse Self-helpline ([phone]); [facility] [address] [place] [address] ([phone]); [facility] [address] [facility] [address] ([phone]); [facility] ([phone]); [facility] ([phone]); [facility] ([phone]); [facility] ([phone]).Pt will continue to be under the care of psychiatrist, Dr. Joyce, located at [address] [place] [id number]; . Pt will be under the care of supervisor tunnel heading, Dr. Randolph, located at [address] [place] [address]; . The homeless waiver form, choice of vendor form, and multidisciplinary exit care form were done, printed, signed, and given to the patient.
--- NOTE | 2020-09-02 11:15 | NUR ---
Conservator Contact: CHRIS called the pts Temporary Conservator, Leora ([phone]), and informed her that the pts discharge is cancelled.
--- NOTE | 2020-09-02 11:37 | NUR ---
PT REFUSING XRAY , RN NOTIFIED . PK
--- NOTE | 2020-09-02 12:54 | NUR ---
Pt. told the staffs that she is still suicidal and specific plans. Dr. Joyce made aware and ordered to cancel the discharge and notify the conservator. Addendum: 09/02/20 at 1829 by BASSAM CROCKETT RN No specific plans
--- NOTE | 2020-09-02 12:55 | NUR ---
anvil worker Becky) made aware that the discharge is being cancelled due to is till suicidal and told to notify the conservator. Addendum: 09/02/20 at 1258 by BASSAM CROCKETT RN anvil worker Becky) made aware that the discharge is being cancelled due to pt. is still suicidal with no specific plans and told to notify the conservator. Addendum: 09/02/20 at 1304 by BASASM CROCKETT RN Adonis SHORT made aware.
--- NOTE | 2020-09-02 13:15 | NUR ---
DISCHARGE CANCELLED DUE TO PT ENDORSING SUICIDAL IDEATION.
[2020-09-02] MEDS: OXCARBAZEPINE 150 MG TABLET PO SCH ×2 (14:30→17:07)
--- NOTE | 2020-09-02 15:08 | NUR ---
1430 TRILEPTAL NON ADMINISTER R/T ITS A NEW ORDER FOR BID WITH SCHEDULED DOSES FOR 1430 AND 1700-TIME FREQUENCY TOO CLOSE.
[2020-09-02 16:00] VITALS: BP 117/64
--- NOTE | 2020-09-02 22:00 | NUR ---
NURSES NOTES: PATIENT ASSESSED FOR ANY SUICIDAL IDEATION. PER PATIENT SHE IS SUICIDAL, HOWEVER SHE DOES NOT HAVE PLANS OF CUTTING HERSELF. PATIENT ELABORATED THAT SHE IS NOT LOOKING FORWARD TO THE FUTURE, SHE IS AFRAID OF IT AND THAT SHE THINKS THAT WHEN SHE EATS, FOOD IS LETHAL AND THAT WILL BE THE ONE KILLING HER AND NOT HERSELF. ART FRAMING MANAGER THEN ASKED IF SHE HAS TAKEN ANY MEALS TODAY, PER PATIENT SHE DID EAT, BECAUSE SHE NEEDS IT TOO, HOWEVER THAT WHAT SHE THINKS OF FOOD. PATIENT DENIES ANY AUDITORY OR VISUAL HALLUCINATIONS. SHE CLAIMS THAT THE MESSAGE BROUGHT ABOUT BY THE TV SHOWS, THE HELICOPTER ROAMING AROUND OR THE SIRENS FROM THE OUTSIDE ARE THE ONES BRINGING HER THE BAD MESSAGES. PATIENT THEN INSTRUCTED THAT IF SHE HAS THE URGE TO HURT HERSELF, OR IF THESE SUICIDAL THOUGHTS COME TO HER TO A POINT OF STRESSING HER TO ALWAYS SEEK THE NURSES/STAFF'S HELP. PATIENT AGREED TO CONTRACT FOR SAFETY. Q15 MIN CHECKS CONTINUED FOR THIS PATIENT.
[2020-09-03] MEDS: IBUPROFEN 600 MG TABLET PO PRN (01:46)
--- NOTE | 2020-09-03 01:49 | NUR ---
NURSES NOTES: PATIENT WOKE UP TO KNEE PAIN, REQUESTED FOR MOTRIN MEDICATION. PAIN LEVEL 6/10. MOTRIN 600MG TAB GIVEN PRN ORDER. WILL MONITOR EFFICACY OF MEDICATION.
[2020-09-03] MEDS: OXCARBAZEPINE 150 MG TABLET PO SCH ×3 (08:11→16:23)
[2020-09-03] MEDS: LITHIUM CARBONATE 150 MG CAPSULE PO SCH ×2 (08:11→20:10)
[2020-09-03] MEDS: ENSURE ENLIVE CHOC 237 ML CAN PO SCH ×2 (08:11→16:23)
[2020-09-03] MEDS: BENZTROPINE MESYLATE (1 MG) 1 MG TABLET PO SCH ×3 (08:11→16:23)
[2020-09-03] MEDS: risperiDONE 1 MG TABLET PO SCH ×2 (08:12→20:10)
[2020-09-03 20:00] VITALS: BP 154/71
[2020-09-03] MEDS: LORAZEPAM 0.5 MG TABLET PO PRN (20:59)
--- NOTE | 2020-09-03 21:02 | NUR ---
NURSE NOTES: PATIENT HAD AN EPISODE OF SCREAMING UNPROVOKED. OFFERED HER ATIVAN MEDICATION. ATIVAN 0.5 MG TAB GIVEN PRN ORDER. WILL MONITOR EFFICACY OF MEDICATION AND PATIENT'S LEVEL OF ANXIETY.
[2020-09-04] MEDS: ENSURE ENLIVE CHOC 237 ML CAN PO SCH ×2 (08:07→16:10)
[2020-09-04] MEDS: OXCARBAZEPINE 150 MG TABLET PO SCH ×3 (08:58→16:17)
[2020-09-04] MEDS: LITHIUM CARBONATE 150 MG CAPSULE PO SCH ×2 (08:58→20:49)
[2020-09-04] MEDS: BENZTROPINE MESYLATE (1 MG) 1 MG TABLET PO SCH ×3 (08:58→16:17)
[2020-09-04] MEDS: risperiDONE 1 MG TABLET PO SCH ×2 (08:58→20:49)
[2020-09-04] MEDS: LORAZEPAM 0.5 MG TABLET PO PRN ×3 (12:28→18:04)
--- NOTE | 2020-09-04 12:28 | NUR ---
RN-CO: ATIVAN 0.5 MG PO GIVEN FOR AGITATION. Patient is delusional she thinks that food can make her "sicker in the head". She thinks nurses are "digging" her.
--- NOTE | 2020-09-04 12:31 | NUR ---
RN-CO: PT REFUSED ATIVEN PO, SHE STATED " IT DOESN'T HELP."
--- NOTE | 2020-09-04 18:04 | NUR ---
RN-CO: ATIVAN 0.5 MG PO GIVEN, PATIENT SLAMMED HER DOOR, AND YELLED "I DID NOT ACHIEVED ANYTHING BUT I SHOULD BE AN ACHIEVER!" SHE IS VERY SUSPICIOUS WITH PATIENTS AND STAFF. 'THEY ARE MONITORING ME!"
[2020-09-05] MEDS: ENSURE ENLIVE CHOC 237 ML CAN PO SCH (08:00)
[2020-09-05] MEDS: BENZTROPINE MESYLATE (1 MG) 1 MG TABLET PO SCH ×2 (08:22→12:26)
[2020-09-05] MEDS: risperiDONE 1 MG TABLET PO SCH (08:22)
[2020-09-05] MEDS: LITHIUM CARBONATE 150 MG CAPSULE PO SCH (08:22)
[2020-09-05] MEDS: OXCARBAZEPINE 150 MG TABLET PO SCH (08:22)
--- NOTE | 2020-09-05 09:00 | NUR ---
RN NOTE- PT ALERT ORIENTED INTERACTIVE CALM VISIBLE ON UNIT DENIES SI HI AH VH MED COMPLIANT
--- NOTE | 2020-09-05 09:53 | NUR ---
Nurse will canceled the order. Pt. still Refusing chest x-ray.
--- NOTE | 2020-09-05 12:40 | NUR ---
Conservator Contact: CHRIS called the pts Temporary Conservator, Leora ([phone]), and informed her that the pt is going to be discharged to [facility] due to the facility being locked and having a bed available. CHRIS then provided her with the address and phone number.
--- NOTE | 2020-09-05 12:54 | NUR ---
Discharge Note: Pt will be discharged to [facility] ([facility]) located at [address] [place] [address]; ([phone]). Pt will be transported via [facility] at 4PM. SW informed the pts conservator, Leora ([phone]), about the pts discharge. Upon discharge, pt appears to be in a euphoric mood and presented with a calm affect. Pt denies both suicidal and homicidal ideation as well as auditory and visual hallucinations. Pt appears to be alert and oriented x4. Pt appears to be ambulatory with an unsteady gait. Pt appears to be disheveled yet appropriately dressed. Pt will continue to be under the care of psychiatrist, Dr. Joyce, located at [address] [facility]. [address] [place] [phone]; and endoscopy registered nurse, Dr. Randolph, located at [address] [place] [address]; . Pt signed the Choice of Vendor form which was placed in the chart. The Choice of vendor form and the multidisciplinary exit care form was done, printed, signed, and given to the patient.
[2020-09-05] MEDS ORDERED: OXCARBAZEPINE 150 MG TABLET PO SCH (13:00)
--- NOTE | 2020-09-05 16:05 | NUR ---
RN DC NOTE- PT DC AT THIS TIME [facility] VIA [facility]ANCE. REPORT CALLED INTO FACILITY. PT ALERT ORIENTED TO PERSON PLACE TIME PURPOSE. SKIN INTACT. CALM DIRECTABLE DENIES SI HI AH VH AT THIS TIME. PT REFUSES PNA AND INFLUENZA VACCINES. VALUABLES RETURNED TO PT AND SIGNED FOR. ID [id number] REMOVED. ESCORTED OFF UNIT BY MARISOL Barrera STAFF.
== END 2020-09-05 16:05 | DRG 885 ==
LOC: GPS 21:45
PROVIDERS: ADMIT Psychiatry & Neurology Psychosomatic Medicine; ATTEND Nurse Practitioner Acute Care
DX: F25.0 Schizoaffective disorder, bipolar type (principal); E44.1 Mild protein-calorie malnutrition; Z73.6 Limitation of activities due to disability; G31.84 Mild cognitive impairment of uncertain or unknown etiology; F32.9 Major depressive disorder, single episode, unspecified; F29 Unspecified psychosis not due to a substance or known physiological condition; M19.90 Unspecified osteoarthritis, unspecified site; Z20.822 Contact with and (suspected) exposure to COVID-19
CPT/HCPCS: 36415; 80048-TC; 80053-TC; 80061-TC; 83735-TC; 85025-TC; 87081-TC; Q0163

== ENCOUNTER 2021-02-22 08:16 | Emergency (ER) | payer MEDICARE, MEDICAID ==
[~2021-02-22] VITALS: Ht 177.8 cm; Wt 100.2 kg
--- NOTE | 2021-02-22 08:22 | NUR ---
TO ER BED 4, FROM [facility], C/O CHEST PAIN SINCE 2:30AM THIS MORNING AT 6/10, A&OX4, ASPIRIN GIVEN BY PARAMEDICS, PAIN RELIEVED TO 5/10.
[2021-02-22] MEDS ORDERED: MAG HYDROX/AL HYDROX/SIMETH 30 ML UDC PO ONE (08:30)
[2021-02-22] MEDS ORDERED: LIDOCAINE VISCOUS 2% UD 15 ML UDC MM ONE (08:30)
[2021-02-22] MEDS ORDERED: LIDOCAINE VISCOUS 2% UD 15 ML UDC ONE (08:40)
[2021-02-22] MEDS ORDERED: MAG HYDROX/AL HYDROX/SIMETH 30 ML UDC ONE (08:40)
--- NOTE | 2021-02-22 08:52 | NUR ---
LAB AT BEDSIDE
[2021-02-22 09:08] LABS: BASOPHILS % (AUTO) 1.1 % (0.0-2.0); EOSINOPHILS % (AUTO) 5.2 % (0.0-6.0); HEMATOCRIT 35 % (33-45); HEMOGLOBIN 11.7 g/dL (11.5-14.8); LYMPHOCYTES # (AUTO) 1.5 K/uL (0.8-4.8); LYMPHOCYTES % (AUTO) 32.4 % (20.0-44.0); MEAN CORPUSCULAR HGB CONC 33 g/dl (31.0-36.0); MEAN CORPUSCULAR VOLUME 98 fL (82-100); MONOCYTES # (AUTO) 0.5 K/uL (0.1-1.30); MONOCYTES % (AUTO) 11.1 % (2.0-12.0); NEUTROPHILS # (AUTO) 2.3 K/uL (1.8-8.9); NEUTROPHILS % (AUTO) 50.2 % (43.0-81.0); PLATELET COUNT (AUTO) 229 K/uL (150-450); RED BLOOD CELL COUNT(AUTO) 3.59 MIL/uL (4.0-5.2); WHITE BLOOD COUNT (AUTO) 4.5 K/uL (4.3-11.0)
[2021-02-22 09:23] LABS: ALANINE AMINOTRANSFERASE 12 U/L (12-78); ALBUMIN 2.9 g/dL (3.4-5.0); ALKALINE PHOSPHATASE 58 U/L (46-116); ASPARTATE AMINOTRANSFERASE 10 U/L (15-37); BILIRUBIN,DIRECT 0.1 mg/dL (0.0-0.2); BILIRUBIN,TOTAL 0.2 mg/dL (0.2-1.0); CALCIUM, SERUM 8.2 mg/dL (8.5-10.1); CARBON DIOXIDE 33 mmol/L (21-32); CHLORIDE 108 mmol/L (98-107); CREATININE 0.7 mg/dL (0.6-1.3); GLUCOSE 96 mg/dL (74-106); POTASSIUM 4.2 mmol/L (3.5-5.1); SODIUM SERUM 143 mmol/L (136-145); TOTAL PROTEIN, SERUM 6.1 g/dL (6.4-8.2); UREA NITROGEN, BLOOD 15 mg/dL (7-18)
[2021-02-22] MEDS ORDERED: FAMO-131 PO (10:14)
--- NOTE | 2021-02-22 10:28 | NUR ---
CALLED TRANSPORT [facility] ETA 60 MINS.
[2021-02-22 11:46] VITALS: BP 110/70
== END 2021-02-22 11:46 | disposition home or self-care (01) ==
LOC: ER 08:23
DX: R07.89 Other chest pain (principal); R10.10 Upper abdominal pain, unspecified; E11.9 Type 2 diabetes mellitus without complications; Z79.899 Other long term (current) drug therapy
CPT/HCPCS: 36415; 71045-TC; 80048-TC; 80076-TC; 83690-TC; 84484-TC; 85025-TC